=== PATIENT | male | born 1980 | race American Indian/Alaskan Native ===

== ENCOUNTER 2019-03-20 18:45 | Inpatient (IN) | payer OTHER ==
--- NOTE | 2019-03-20 18:57 | Emergency Department Report ---
Blank Doc - Documentation Documentation: 38 y o male presents with progressive numbness to right leg and bilateral hands states worsening with the right legand ankle stating he cant feel his right foot no drug use, DM, no trauma states unable to use that right leg MAin side eval
--- NOTE | 2019-03-20 22:34 | Emergency Department Report ---
ED Neuro Deficit HPI - General Chief Complaint: Pain General Stated Complaint: ENTIRE RT SIDE NUMB Time Seen by Provider: 03/20/19 18:52 Source: patient Mode of arrival: Ambulatory Limitations: No Limitations - History of Present Illness Initial Comments: 38-year-old male with a past medical history of hypertension currently compliant with meds but missed his dose today presents to Hospital complains of progressively worsening right sided numbness and weakness. Patient states 2 months ago patient woke up from sleeping with right arm numbness. Numbness is primarily at the area of the tricep. Symptoms have continued to progress to include right leg weakness and numbness that has been progressively worsening for the past 4 weeks. Today the patient was unable to move his toes of his right foot or plantar or dorsiflex his foot. He is unable to put pressure on his extremity to walk due to weakness. Patient also states he did had an episode of blurred vision that has since resolved. Patient denies any trauma, headache, neck pain, back pain, fever, or urinary or fecal incontinence. - Related Data Home Medications: Home Medications Medication Instructions Recorded Confirmed Last Taken amLODIPine [Norvasc] 5 mg PO DAILY 03/21/19 03/21/19 Unknown Allergies/Adverse Reactions: Allergies Allergy/AdvReac Type Severity Reaction Status Date / Time No Known Allergies Allergy Unverified 03/20/19 18:52 ED Review of Systems ROS: Stated complaint: ENTIRE RT SIDE NUMB Other details as noted in HPI Comment: All other systems reviewed and negative ED Past Medical Hx - Past Medical History Previous Medical History?: Yes Hx Hypertension: Yes - Surgical History Past Surgical History?: No - Social History Smoking Status: Current Every Day Smoker Substance Use Type: Alcohol, Marijuana, Prescribed - Medications Home Medications: Home Medications Medication Instructions Recorded Confirmed Last Taken Type amLODIPine [Norvasc] 5 mg PO DAILY 03/21/19 03/21/19 Unknown History ED Neuro Physical Exam - General Limitations: No Limitations Suspected Stroke: No - NIHSS Assessment Interval: Baseline 1a. Level of Consciousness: alert/keenly responsive 1b. LOC Questions: answers both correctly 1c. LOC Commands: performs tasks correctly 2. Best Gaze: normal 3. Visual: no visual loss 4. Facial Palsy: normal symmetrical movement 5b. Motor Arm Right: amputation/joint fusion 5a. Motor Arm Left: no drift 6a. Motor Leg Left: no drift 6b. Motor Leg Right: drift 7. Limb Ataxia: absent 8. Sensory: mild/moderate sensory loss 9. Best Language: no aphasia 10. Dysarthria: normal 11. Extinction/Inattention: no abnormality Total Score: 2 Stroke Severity: Minor Stroke - Other Other exam information: General: No limitations, patient is alert in no acute distress Head exam: Atraumatic, normocephalic Eyes exam: Normal appearance, pupils equal reactive to light, extraocular movements intact ENT: Moist mucous membrane, normal oropharynx Neck exam: Normal inspection, full range of motion, no meningismus nontender Respiratory exam: Clear to auscultation bilateral, no wheezes, rales, crackles Cardiovascular: Normal rate and rhythm, normal heart sounds Abdomen: Soft, nondistended, and nontender, with normal bowel sounds, no rebound, or guarding Extremity: Full range of motion normal inspection no deformity Back: Normal Inspection, full range of motion, no tenderness Neurologic: Alert, oriented x3, cranial nerves intact, decreased sensation to light touch to the right tricep area however, equal sensation to light touch to the distal bilateral arms. Decreased sensation to light touch on the right leg compared to the left. Patient has drift of the right leg with straight leg raise. Patient is unable to bend at the knee against gravity, plantar or dorsiflex the foot, or move his toes on the right side. 2+ bilateral distal DP pulses. Psychiatric: normal affect, normal mood Skin: Warm, dry, intact the ED Course Vital Signs 03/20/19 03/20/19 03/20/19 18:52 21:21 22:00 Temperature 98.9 F 98.3 F Pulse Rate 82 68 63 Respiratory 18 14 16 Rate Blood Pressure 164/95 151/99 Blood Pressure 171/109 [Left] O2 Sat by Pulse 98 100 100 Oximetry 03/20/19 03/21/19 03/21/19 23:00 01:00 01:31 Temperature Pulse Rate 59 L 58 L 58 L Respiratory 15 14 13 Rate Blood Pressure 137/93 141/93 141/93 Blood Pressure [Left] O2 Sat by Pulse 100 100 99 Oximetry 03/21/19 02:00 Temperature Pulse Rate 58 L Respiratory 16 Rate Blood Pressure 143/96 Blood Pressure [Left] O2 Sat by Pulse 99 Oximetry - Consultations Consultation #1: 03/20/19 22:39 Case D/w neurologist Dr Cuenca, agrees with management for ct and admit for MRI tomorrow. - Lab Data Result diagrams: 03/20/19 22:37 03/20/19 22:37 Lab Results 03/20/19 03/20/19 Range/Units 22:37 22:37 WBC 5.8 (4.5-11.0) K/mm3 RBC 5.40 H (3.65-5.03) M/mm3 Hgb 15.3 H (11.8-15.2) gm/dl Hct 46.0 H (35.5-45.6) % MCV 85 (84-94) fl MCH 28 (28-32) pg MCHC 33 (32-34) % RDW 15.6 H (13.2-15.2) % Plt Count 264 (140-440) K/mm3 Lymph % (Auto) 32.0 (13.4-35.0) % [place] % (Auto) 7.5 H (0.0-7.3) % Eos % (Auto) 4.1 (0.0-4.3) % Baso % (Auto) 0.9 (0.0-1.8) % Lymph # 1.9 (1.2-5.4) K/mm3 [place] # 0.4 (0.0-0.8) K/mm3 Eos # 0.2 (0.0-0.4) K/mm3 Baso # 0.1 (0.0-0.1) K/mm3 Seg Neutrophils % 55.5 (40.0-70.0) % Seg Neutrophils # 3.2 (1.8-7.7) K/mm3 Sodium 140 (137-145) mmol/L Potassium 4.0 (3.6-5.0) mmol/L Chloride 108.4 H (98-107) mmol/L Carbon Dioxide 21 L (22-30) mmol/L Anion Gap 15 mmol/L BUN 11 (9-20) mg/dL Creatinine 0.6 L (0.8-1.5) mg/dL Estimated GFR > 60 ml/min BUN/Creatinine Ratio 18 % Glucose 90 (75-100) mg/dL Calcium 8.6 (8.4-10.2) mg/dL Magnesium 2.20 (1.7-2.3) mg/dL - Radiology Data Radiology results: report reviewed PROCEDURE: CT HEAD/BRAIN WO CON TECHNIQUE: Computerized tomography of the head was performed without contrast ma terial. CT DOSE LENGTH PRODUCT: mGycm HISTORY: right upper arm numbness, right leg weakness COMPARISONS: None . FINDINGS: Skull and scalp: Normal . Paranasal sinuses: Normal . Ventricles and subarachnoid spaces: Normal . Cerebrum: No evidence of hemorrhage, acute infarction or mass . There is an old lacunar infarct defect in the right caudate nucleus. There are old infarct effects in the left frontal lobe. Cerebellum and brainstem: No evidence of hemorrhage, acute infarction or mass . Vasculature: Normal . IMPRESSION: There are old infarcts defects bilaterally. There is no acute infarction. There is no hemorrhage, edema, mass, mass effect or midline shift. . PROCEDURE: CT CERVICAL SPINE WO CON TECHNIQUE: Computerized tomography of the cervical spine was performed from the skull base to T1 without contrast material. CT DOSE LENGTH PRODUCT: mGycm HISTORY: right sided weakness and numbness COMPARISONS: None . FINDINGS: Skull base and foramen magnum are intact. Cervical vertebrae are intact. C1-2: No significant abnormality . C2-3: No significant abnormality . C3-4: No significant abnormality . C4-5: No significant abnormality . C5-6: No significant abnormality . C6-7: No significant abnormality . C7-T1: No significant abnormality . Fractures: None . Other: Soft tissues are unremarkable. . IMPRESSION: No significant abnormality . PROCEDURE: CT THORACIC SPINE WO CON HISTORY: right upper arm numbness, right leg weakness FINDINGS: Unenhanced CT of the thoracic spine was performed and data was reformatted into sagittal and coronal planes. These images demonstrate no fracture or malalignment of the thoracic spine. There is no evidence of central canal stenosis, significant neural foraminal narrowing or nerve root impingement IMPRESSION: No fracture is seen in the thoracic spine PROCEDURE: CT LUMBAR SPINE WO CON HISTORY: right upper arm numbness, right leg weakness FINDINGS: Unenhanced CT of the lumbar spine was performed and data was reformatted into sagittal and coronal planes. These images demonstrate no fracture or malalignment of the lumbar spine. There is no evidence of central canal stenosis or significant neural foraminal narrowing or nerve root impingement. There are degenerative changes in both sacroiliac joints with partial fusion of both sacroiliac joints IMPRESSION: No fracture or malalignment of the lumbar spine Bilateral partial fusion of the sacroiliac joints - Medical Decision Making Patient has significant right leg weakness progressively worsening and now more significant today. CTs performed and are fairly unremarkable. Patient requires admission to the hospital for MRI. Hospitalist informed. - Differential Diagnosis herniated disc, cauda equina, peripheral neuropathy, radiculopathy, CVA Critical Care Time: No Critical care attestation.: If time is entered above; I have spent that time in minutes in the direct care of this critically ill patient, excluding procedure time. ED Disposition Clinical Impression: Right sided numbness, Right leg weakness, Chronic hypertension Disposition: OP ADMIT IP TO THIS HOSP Is pt being admited?: Yes Condition: Stable Time of Disposition: 03:22 (Dr APPIAH hosptialist)
[2019-03-20 22:55] LABS: Basophils # (Auto) 0.1 K/mm3 (0.0-0.1); Basophils % (Auto) 0.9 % (0.0-1.8); Eosinophils # (Auto) 0.2 K/mm3 (0.0-0.4); Eosinophils % (Auto) 4.1 % (0.0-4.3); Hemoglobin 15.3 gm/dl (11.8-15.2); Lymphocytes # (Auto) 1.9 K/mm3 (1.2-5.4); Mean Corpuscular HGB Conc 33 % (32-34); Mean Corpuscular Volume 85 fl (84-94); Monocytes # (Auto) 0.4 K/mm3 (0.0-0.8); Monocytes % (Auto) 7.5 % (0.0-7.3); Platelet Count 264 K/mm3 (140-440); Red Cell Distribution Width 15.6 % (13.2-15.2)
[2019-03-20 23:10] LABS: BUN/Creatinine Ratio 18; Blood Urea Nitrogen 11 mg/dL (9-20); Calcium 8.6 mg/dL (8.4-10.2); Hemolysis Index 12
--- NOTE | 2019-03-21 01:38 | Cat Scan Report ---
PROCEDURE: CT HEAD/BRAIN WO CON TECHNIQUE: Computerized tomography of the head was performed without contrast material. CT DOSE LENGTH PRODUCT: mGycm HISTORY: right upper arm numbness, right leg weakness COMPARISONS: None . FINDINGS: Skull and scalp: Normal . Paranasal sinuses: Normal . Ventricles and subarachnoid spaces: Normal . Cerebrum: No evidence of hemorrhage, acute infarction or mass . There is an old lacunar infarct defe ct in the right caudate nucleus. There are old infarct effects in the left frontal lobe. Cerebellum and brainstem: No evidence of hemorrhage, acute infarction or mass . Vasculature: Normal . IMPRESSION: There are old infarcts defects bilaterally. There is no acute infarction. There is no he morrhage, edema, mass, mass effect or midline shift. . This document is electronically signed by Tommy Almonte MD., March 21 2019 02:35:26 AM ET
--- NOTE | 2019-03-21 02:07 | Cat Scan Report ---
PROCEDURE: CT CERVICAL SPINE WO CON TECHNIQUE: Computerized tomography of the cervical spine was performed from the skull base to T1 wit hout contrast material. CT DOSE LENGTH PRODUCT: mGycm HISTORY: right sided weakness and numbness COMPARISONS: None . FINDINGS: Skull base and foramen magnum are intact. Cervical vertebrae are intact. C1-2: No significant abnormality . C2-3: No significant abnormality . C3-4: No significant abnormality . C4-5: No significant abnormality . C5-6: No significant abnormality . C6-7: No significant abnormality . C7-T1: No significant abnormality . Fractures: None . Other: Soft tissues are unremarkable. . IMPRESSION: No significant abnormality . This document is electronically signed by Tommy Almonte MD., March 21 2019 03:05:01 AM ET
--- NOTE | 2019-03-21 02:41 | Cat Scan Report ---
PROCEDURE: CT THORACIC SPINE WO CON HISTORY: right upper arm numbness, right leg weakness FINDINGS: Unenhanced CT of the thoracic spine was performed and data was reformatted into sagittal an d coronal planes. These images demonstrate no fracture or malalignment of the thoracic spine. There is no evidence of c entral canal stenosis, significant neural foraminal narrowing or nerve root impingement IMPRESSION: No fracture is seen in the thoracic spine This document is electronically signed by Philip Patino MD., March 21 2019 03:39:06 AM ET
--- NOTE | 2019-03-21 02:49 | Cat Scan Report ---
PROCEDURE: CT LUMBAR SPINE WO CON HISTORY: right upper arm numbness, right leg weakness FINDINGS: Unenhanced CT of the lumbar spine was performed and data was reformatted into sagittal and coronal planes. These images demonstrate no fracture or malalignment of the lumbar spine. There is no evidence of cassie tral canal stenosis or significant neural foraminal narrowing or nerve root impingement. There are degenerative changes in both sacroiliac joints with partial fusion of both sacroiliac joint s IMPRESSION: No fracture or malalignment of the lumbar spine Bilateral partial fusion of the sacroiliac joints This document is electronically signed by Philip Patino MD., March 21 2019 03:47:25 AM ET
[2019-03-21] MEDS ORDERED: SODIUM CHLORIDE FLUSH SYRINGE 10 ML IV PRN (03:24)
[2019-03-21] MEDS ORDERED: ZOFRAN IV PRN (03:24)
[2019-03-21] MEDS ORDERED: TYLENOL PO PRN ×2 (03:24→04:14)
[2019-03-21] MEDS: NACL 0.9% 1000 ML 1,000 ML IV SCH (03:58)
[2019-03-21] MEDS ORDERED: PHENERGAN PR PRN (04:14)
[2019-03-21] MEDS ORDERED: MILK OF MAGNESIA PO PRN (04:14)
[2019-03-21] MEDS ORDERED: SODIUM CHLORIDE FLUSH SYRINGE 10 ML INJ PRN (04:14)
[2019-03-21] MEDS ORDERED: REGLAN PO PRN (04:14)
[2019-03-21] MEDS ORDERED: DULCOLAX PR PRN (04:14)
--- NOTE | 2019-03-21 04:30 | History and Physical Report ---
<CAMILLE COLLINS - Last Filed: 03/21/19 04:40> History of Present Illness Date of examination: 03/21/19 Date of admission: 03/21/2019 Chief complaint: Right lower extremities weakness History of present illness: Pt is a 38-year-old male with PMHx of hypertension (on Amlodipine) who presents to the ER with complains of right sided numbness and weakness. Patient states that the symptoms started 2 months ago, he woke up with right arm and right leg numbness and weakness, pt states that he was still able to drive and walk with his right side. Pt states the weakness and numbness progressively worsen over the past 4 weeks, he states that yesterday, he woke up with inability to walk or dorsiflex his right foot or to drive. Patient also reports an episode of blurred vision, he denies any weakness or numbness on his face, any slurred speach or difficulty speaking, he denies double vision, recent illness or traveling, he denies headache or dizziness, he denies any change and bowel or bladder. In the ER his CT of the head, cervical or lumbar spine were negative, he is admitted for further evaluation. Past History Past Medical History: hypertension Past Surgical History: No surgical history Social history: no significant social history, smoking (quit 6 weeks ago) Family history: no significant family history Medications and Allergies Allergies Allergy/AdvReac Type Severity Reaction Status Date / Time No Known Allergies Allergy Unverified 03/20/19 18:52 Home Medications Medication Instructions Recorded Confirmed Last Taken Type amLODIPine [Norvasc] 5 mg PO DAILY 03/21/19 03/21/19 Unknown History Active Meds: Active Medications Acetaminophen (Tylenol) 650 mg PO Q4H PRN PRN Reason: Pain MILD(1-3)/Fever >100.5/ARROYO Acetaminophen (Tylenol) 650 mg PO Q4H PRN PRN Reason: Pain, Mild (1-3) Atorvastatin Calcium (Lipitor) 40 mg PO QHS [facility] Bisacodyl (Dulcolax) 10 mg MN QDAY PRN PRN Reason: Constipation Enoxaparin Sodium (Lovenox) 40 mg SUB-Q QDAY [facility] Famotidine (Pepcid) 20 mg IV BID [facility] Sodium Chloride (Nacl 0.9% 1000 Ml) 1,000 mls @ 100 mls/hr IV DIRECT [facility] Last Admin: 03/21/19 03:58 Dose: 100 mls/hr Documented by: Magnesium Hydroxide (Milk Of Magnesia) 30 ml PO Q4H PRN PRN Reason: Constipation Metoclopramide HCl (Reglan) 10 mg PO Q6H PRN PRN Reason: Nausea And Vomiting Ondansetron HCl (Zofran) 4 mg IV Q8H PRN PRN Reason: Nausea And Vomiting Promethazine HCl (Phenergan) 25 mg MN Q6H PRN PRN Reason: Nausea And Vomiting Sodium Chloride (Sodium Chloride Flush Syringe 10 Ml) 10 ml IV BID MARILIN Sodium Chloride (Sodium Chloride Flush Syringe 10 Ml) 10 ml IV PRN PRN PRN Reason: LINE FLUSH Sodium Chloride (Sodium Chloride Flush Syringe 10 Ml) 10 ml INJ PRN PRN PRN Reason: LINE FLUSH Review of Systems Neurological: weakness, numbness Exam - Constitutional Vitals: Temp Pulse Resp BP Pulse Ox 98.3 F 69 11 L 151/96 99 03/20/19 21:21 03/21/19 03:30 03/21/19 03:30 03/21/19 03:30 03/21/19 03:30 General appearance: Present: no acute distress - EENT Eyes: Present: EOM intact ENT: hearing intact - Neck Neck: Present: normal ROM - Respiratory Respiratory effort: normal Respiratory: bilateral: CTA - Cardiovascular Rhythm: regular Heart Sounds: Present: S1 & S2 - Extremities Extremities: no ischemia, No edema Peripheral Pulses: within normal limits - Abdominal General gastrointestinal: Present: deferred Male genitourinary: Present: deferred - Rectal Rectal Exam: deferred - Integumentary Integumentary: Present: warm, dry - Musculoskeletal Musculoskeletal: right sided weakness - Psychiatric Psychiatric: cooperative - Neurologic Neurologic: focal deficits Results - Labs CBC & Chem 7: 03/20/19 22:37 03/20/19 22:37 Labs: Laboratory Last Values WBC 5.8 K/mm3 (4.5-11.0) 03/20/19 22:37 RBC 5.40 M/mm3 (3.65-5.03) H 03/20/19 22:37 Hgb 15.3 gm/dl (11.8-15.2) H 03/20/19 22:37 Hct 46.0 % (35.5-45.6) H 03/20/19 22:37 MCV 85 fl (84-94) 03/20/19 22:37 MCH 28 pg (28-32) 03/20/19 22:37 MCHC 33 % (32-34) 03/20/19 22:37 RDW 15.6 % (13.2-15.2) H 03/20/19 22:37 Plt Count 264 K/mm3 (140-440) 03/20/19 22:37 Lymph % (Auto) 32.0 % (13.4-35.0) 03/20/19 22:37 [place] % (Auto) 7.5 % (0.0-7.3) H 03/20/19 22:37 Eos % (Auto) 4.1 % (0.0-4.3) 03/20/19 22:37 Baso % (Auto) 0.9 % (0.0-1.8) 03/20/19 22:37 Lymph # 1.9 K/mm3 (1.2-5.4) 03/20/19 22:37 [place] # 0.4 K/mm3 (0.0-0.8) 03/20/19 22:37 Eos # 0.2 K/mm3 (0.0-0.4) 03/20/19 22:37 Baso # 0.1 K/mm3 (0.0-0.1) 03/20/19 22:37 Seg Neutrophils % 55.5 % (40.0-70.0) 03/20/19 22:37 Seg Neutrophils # 3.2 K/mm3 (1.8-7.7) 03/20/19 22:37 Sodium 140 mmol/L (137-145) 03/20/19 22:37 Potassium 4.0 mmol/L (3.6-5.0) 03/20/19 22:37 Chloride 108.4 mmol/L (98-107) H 03/20/19 22:37 Carbon Dioxide 21 mmol/L (22-30) L 03/20/19 22:37 15 mmol/L 03/20/19 22:37 BUN 11 mg/dL (9-20) 03/20/19 22:37 0.6 mg/dL (0.8-1.5) L 03/20/19 22:37 Estimated GFR > 60 ml/min 03/20/19 22:37 18 % 03/20/19 22:37 Glucose 90 mg/dL (75-100) 03/20/19 22:37 Calcium 8.6 mg/dL (8.4-10.2) 03/20/19 22:37 Magnesium 2.20 mg/dL (1.7-2.3) 03/20/19 22:37 Assessment and Plan Assessment and plan: 1. Right-sided weakness (r/o CVA) 2. Accelerated hypertension 3. H/o cigarette smoking 4. H/o alcohol use disorder Plan: Admit to med telemetry for right-sided weakness to rule out CVA Consult neurology for evaluation MRI of the brain to f/u CT Echocardiogram MRA of the head and neck Physical therapy/occupational therapy to evaluate and treat Consult case management for DC planning Lipid panel/hemoglobin A1c in AM Starts statin, aspirin, beta angel Keep SBP >150 Resume home meds Plan discussed with patient and family in room, voiced understanding Advance Directives: Yes VTE prophylaxis?: Chemical Plan of care discussed with patient/family: Yes <CALLY APPIAH - Last Filed: 03/21/19 06:38> History of Present Illness Date of admission: 03/21/19 03:24 Medications and Allergies Active Meds: Active Medications Acetaminophen (Tylenol) 650 mg PO Q4H PRN PRN Reason: Pain, Mild (1-3) Amlodipine Besylate (Norvasc) 5 mg PO DAILY [facility] Aspirin (Aspirin) 325 mg PO QDAY [facility] Atorvastatin Calcium (Lipitor) 40 mg PO QHS [facility] Bisacodyl (Dulcolax) 10 mg MN QDAY PRN PRN Reason: Constipation Enoxaparin Sodium (Lovenox) 40 mg SUB-Q QDAY [facility] Famotidine (Pepcid) 20 mg IV BID [facility] Sodium Chloride (Nacl 0.9% 1000 Ml) 1,000 mls @ 100 mls/hr IV DIRECT [facility] Last Admin: 03/21/19 03:58 Dose: 100 mls/hr Documented by: Magnesium Hydroxide (Milk Of Magnesia) 30 ml PO Q4H PRN PRN Reason: Constipation Metoclopramide HCl (Reglan) 10 mg PO Q6H PRN PRN Reason: Nausea And Vomiting Metoprolol Tartrate (Lopressor) 25 mg PO BID [facility] Ondansetron HCl (Zofran) 4 mg IV Q8H PRN PRN Reason: Nausea And Vomiting Promethazine HCl (Phenergan) 25 mg MN Q6H PRN PRN Reason: Nausea And Vomiting Sodium Chloride (Sodium Chloride Flush Syringe 10 Ml) 10 ml IV BID [facility] Sodium Chloride (Sodium Chloride Flush Syringe 10 Ml) 10 ml IV PRN PRN PRN Reason: LINE FLUSH Exam - Constitutional Vitals: Temp Pulse Resp BP Pulse Ox 98.5 F 58 L 18 137/94 98 03/21/19 05:17 03/21/19 05:17 03/21/19 05:17 03/21/19 05:17 03/21/19 05:17 Results - Labs CBC & Chem 7: 03/20/19 22:37 03/20/19 22:37 Labs: Laboratory Last Values WBC 5.8 K/mm3 (4.5-11.0) 03/20/19 22:37 RBC 5.40 M/mm3 (3.65-5.03) H 03/20/19 22:37 Hgb 15.3 gm/dl (11.8-15.2) H 03/20/19 22:37 Hct 46.0 % (35.5-45.6) H 03/20/19 22:37 MCV 85 fl (84-94) 03/20/19 22:37 MCH 28 pg (28-32) 03/20/19 22:37 MCHC 33 % (32-34) 03/20/19 22:37 RDW 15.6 % (13.2-15.2) H 03/20/19 22:37 Plt Count 264 K/mm3 (140-440) 03/20/19 22:37 Lymph % (Auto) 32.0 % (13.4-35.0) 03/20/19 22:37 [place] % (Auto) 7.5 % (0.0-7.3) H 03/20/19 22:37 Eos % (Auto) 4.1 % (0.0-4.3) 03/20/19 22:37 Baso % (Auto) 0.9 % (0.0-1.8) 03/20/19 22:37 Lymph # 1.9 K/mm3 (1.2-5.4) 03/20/19 22:37 [place] # 0.4 K/mm3 (0.0-0.8) 03/20/19 22:37 Eos # 0.2 K/mm3 (0.0-0.4) 03/20/19 22:37 Baso # 0.1 K/mm3 (0.0-0.1) 03/20/19 22:37 Seg Neutrophils % 55.5 % (40.0-70.0) 03/20/19 22:37 Seg Neutrophils # 3.2 K/mm3 (1.8-7.7) 03/20/19 22:37 Sodium 140 mmol/L (137-145) 03/20/19 22:37 Potassium 4.0 mmol/L (3.6-5.0) 03/20/19 22:37 Chloride 108.4 mmol/L (98-107) H 03/20/19 22:37 Carbon Dioxide 21 mmol/L (22-30) L 03/20/19 22:37 15 mmol/L 03/20/19 22:37 BUN 11 mg/dL (9-20) 03/20/19 22:37 0.6 mg/dL (0.8-1.5) L 03/20/19 22:37 Estimated GFR > 60 ml/min 03/20/19 22:37 18 % 03/20/19 22:37 Glucose 90 mg/dL (75-100) 03/20/19 22:37 Calcium 8.6 mg/dL (8.4-10.2) 03/20/19 22:37 Magnesium 2.20 mg/dL (1.7-2.3) 03/20/19 22:37 Assessment and Plan Assessment and plan: I saw and evaluated the patient. I agree with the findings and the plan of care as documented in the Nurse Practitioner's~note, with the following corrections and additions. Patient 38-year-old male with PMHx of hypertension admitted with right sided numbness and weakness. Per patient he has had right upper Ext weakness for about 2 months along with right lower ext from the knee down weakness but last night began to have worsening right lower ext weakness and numbness from the Ankle down He denies any Hx of MVA, LOW BACK PAIN, [place]. He quit tobacco about 6 weeks ago and is sometimes complaint with his BP meds Add- carotid ultrasound to work up
--- NOTE | 2019-03-21 09:51 | Event Note ---
Date: 03/21/19 This is a follow-up from an admission earlier this morning. Patient seen, examined and chart reviewed. Nurse also at the bedside and discussed plan of care. We will continue the plan as outlined in H&P. Total visit time= 26 minutes with greater than 50% spent on counseling and coordination of care.
--- NOTE | 2019-03-21 10:05 | Vascular Lab Report ---
PROCEDURE: VL CAROTID DUPLEX BILAT TECHNIQUE: Duplex Doppler ultrasound of bilateral carotid arteries. Grayscale, color flow and spectr al waveform images were obtained. HISTORY: RIGHT SIDED WEAKNESS COMPARISON: None FINDINGS: There is a mild to moderate degree of atherosclerotic plaque within proximal ICAs bilaterally. ICAs a re tortuous. There is no abnormal elevation of flow velocity to indicate any hemodynamically significant stenosis (less than 50%). ICA/CCA ratios are 0.67 and 0.59 on right and left respectively. Vertebral artery flow is antegrade bilaterally. IMPRESSION: No evidence of any hemodynamically significant stenosis. This document is electronically signed by Azra Martins MD., March 21 2019 11:02:33 AM ET
[2019-03-21] MEDS: PEPCID IV SCH ×2 (11:30→21:40)
[2019-03-21] MEDS: LOVENOX SUB-Q SCH (11:30)
[2019-03-21] MEDS: NORVASC PO SCH (11:31)
[2019-03-21] MEDS: ASPIRIN PO SCH (11:31)
[2019-03-21] MEDS: LOPRESSOR PO SCH ×2 (11:32→21:39)
[2019-03-21] MEDS: SODIUM CHLORIDE FLUSH SYRINGE 10 ML IV SCH ×2 (11:33→21:41)
--- NOTE | 2019-03-21 12:16 | Magnetic Resonance Report ---
MRI OF THE BRAIN WITHOUT CONTRAST: HISTORY: Stroke PROCEDURE: Multiplanar, multisequence MR imaging of the brain without IV contrast was performed. FINDINGS: The CT dated 04/06 was reviewed. Diffusion imaging demonstrates multiple areas of diffusion restriction in the left frontal lobe. The largest area in the anterior left frontal lobe measures 3.3 x 2.1 cm in axial plane. The second largest area measures 2.3 x 1.4 cm in the posteromedial left frontal lobe. There are 2 or 3 subcentimeter foci of diffusion restriction in the left frontal white matter anteriorly. These areas are of decreased signal on ADC map consistent subacute ischemia. There is no evidence for hemorrhage, mass or mass effect. Chronic focal infarct in the right anterior basal ganglia measures 1.2 cm. The midline structures are central. The basal cisterns are patent. Normal ventricular size. The orbital cavities and sella turcica demonstrate no abnormality. The visualized paranasal sinuses and mastoid air cells are well aerated. IMPRESSION: Multiple areas of subacute ischemia are identified in the left frontal lobe which are primarily within the left anterior cerebral artery territory or anterior watershed region. Please see above. Chronic focal infarct in the anterior right basal ganglia.
--- NOTE | 2019-03-21 12:18 | Magnetic Resonance Report ---
MRA HEAD WITHOUT CONTRAST HISTORY: Stroke. [id number] imaging with MIP reformations of the [place] of [place] is submitted. The arteries appear widely patent and free of hemodynamically significant stenosis, aneurysm or dissection. IMPRESSION: Unremarkable MRA head. No large vessel occlusion or aneurysm is identified.
--- NOTE | 2019-03-21 17:47 | Consultation ---
History of Present Illness Chief complaint: right weakness History of present illness: This is a 38 YO M with right sided weakness progressing over 2 months. Also with paresthesias. In the days leading up to admission was unable to walk. Also had a visual field cut but this has resolved. Denied autoimmune diseases int he family. No new meds , recently diagnosed with hypertension. Past History Past Medical History: hypertension Past Surgical History: No surgical history Social history: no significant social history, smoking (quit 6 weeks ago) Family history: no significant family history Medications and Allergies Allergies Allergy/AdvReac Type Severity Reaction Status Date / Time No Known Allergies Allergy Unverified 03/20/19 18:52 Home Medications Medication Instructions Recorded Confirmed Last Taken Type amLODIPine [Norvasc] 5 mg PO DAILY 03/21/19 03/21/19 Unknown History Active Meds: Active Medications Acetaminophen (Tylenol) 650 mg PO Q4H PRN PRN Reason: Pain, Mild (1-3) Amlodipine Besylate (Norvasc) 5 mg PO DAILY [facility] Last Admin: 03/21/19 11:31 Dose: 5 mg Documented by: Aspirin (Aspirin) 325 mg PO QDAY [facility] Last Admin: 03/21/19 11:31 Dose: 325 mg Documented by: Atorvastatin Calcium (Lipitor) 40 mg PO QHS MARILIN Bisacodyl (Dulcolax) 10 mg NV QDAY PRN PRN Reason: Constipation Enoxaparin Sodium (Lovenox) 40 mg SUB-Q QDAY [facility] Last Admin: 03/21/19 11:30 Dose: 40 mg Documented by: Famotidine (Pepcid) 20 mg IV BID [facility] Last Admin: 03/21/19 11:30 Dose: 20 mg Documented by: Sodium Chloride (Nacl 0.9% 1000 Ml) 1,000 mls @ 100 mls/hr IV DIRECT [facility] Last Admin: 03/21/19 03:58 Dose: 100 mls/hr Documented by: Magnesium Hydroxide (Milk Of Magnesia) 30 ml PO Q4H PRN PRN Reason: Constipation Metoclopramide HCl (Reglan) 10 mg PO Q6H PRN PRN Reason: Nausea And Vomiting Metoprolol Tartrate (Lopressor) 25 mg PO BID [facility] Last Admin: 03/21/19 11:32 Dose: 25 mg Documented by: Ondansetron HCl (Zofran) 4 mg IV Q8H PRN PRN Reason: Nausea And Vomiting Promethazine HCl (Phenergan) 25 mg NV Q6H PRN PRN Reason: Nausea And Vomiting Sodium Chloride (Sodium Chloride Flush Syringe 10 Ml) 10 ml IV BID MARILIN Last Admin: 03/21/19 11:33 Dose: 10 ml Documented by: Sodium Chloride (Sodium Chloride Flush Syringe 10 Ml) 10 ml IV PRN PRN PRN Reason: LINE FLUSH Review of Systems Eyes: bilateral: other (field cut) Musculoskeletal: leg numbness/tingling, muscle weakness Physical Examination - Vital Signs Vital Signs: Vital Signs Temp Pulse Resp BP Pulse Ox 98.9 F 82 18 164/95 98 03/20/19 18:52 03/20/19 18:52 03/20/19 18:52 03/20/19 18:52 03/20/19 18:52 - Constitutional General appearance: comfortable - EENT EENT: Present: PERRL, mucous membranes moist - Respiratory Respiratory: Present: lungs clear, normal breath sounds - Gastrointestinal Gastrointestinal: Present: normoactive bowel sounds - Neurologic Cranial nerve examination: PERRL, EOMI, VFF, V1/V2/V3 grossly intact, face symmetric Motor examination - right side: 4/5: biceps, triceps, wrist flexion, wrist extension, welder experimental, hip flexors, knee extensors, dorsiflexion, toe extension (EHL), plantarflexion Motor examination - left side: 2/5: knee extensors, dorsiflexion, toe extension (EHL), plantarflexion, 3/5: biceps, triceps, wrist flexion, wrist extension, welder experimental, hip flexors Detailed sensory examination: light touch Reflexes: 3+: ankle, bicep, knee, tricep (bilateral, no clonus noted) Results - Laboratory Findings CBC and BMP: 03/20/19 22:37 03/20/19 22:37 Abnormal Lab Findings: Abnormal Labs 03/20/19 03/20/19 22:37 22:37 RBC 5.40 H Hgb 15.3 H Hct 46.0 H RDW 15.6 H [place] % (Auto) 7.5 H Chloride 108.4 H Carbon Dioxide 21 L Creatinine 0.6 L - Diagnostic Findings Additional findings: MRI Brain left frontal changes, MRA clean Assessment and Plan This is a 38 YO M with progressive right sided weakness and paresthesias for 2 months. Hyperreflexia bilaterally. History fits more with demyelinating di sease. Also with intermittant vision changes. Recommend: MRI Brain w, MRI c spine w/wo Hypercoag w/u but stroke is less likely KAY, DS DNA Presented LP for MS panel, pt would like to hold off for now If MRI IS c/w demyelination would give high dose steroids Solumedrol 1000 mg daily x 3-5 days PT/OT Continue care for all medical issues as you are doing Long discussion with pt and at bedside Call with questions.
[2019-03-22] MEDS: NACL 0.9% 1000 ML 1,000 ML IV SCH (03:48)
[2019-03-22 06:55] LABS: Chol/HDL Ratio 4.28 %
[2019-03-22] MEDS: LOPRESSOR PO SCH ×2 (09:15→22:08)
[2019-03-22] MEDS: PEPCID IV SCH (09:15)
[2019-03-22] MEDS: LOVENOX SUB-Q SCH (09:15)
[2019-03-22] MEDS: ASPIRIN PO SCH (09:15)
[2019-03-22] MEDS: NORVASC PO SCH (09:16)
[2019-03-22] MEDS: SODIUM CHLORIDE FLUSH SYRINGE 10 ML IV SCH ×2 (09:17→22:09)
--- NOTE | 2019-03-22 13:41 | Magnetic Resonance Report ---
MRI BRAIN WITH CONTRAST: 03/22/19 10:25:00 CLINICAL: Subacute infarcts. Questionable demyelinating disease. COMPARISON: 03/21/19 TECHNIQUE: Coronal and axial postcontrast T1 sequences on a 1.5 Joann magnet. 18.0 cc of Multihance was injected intravenously and consent was obtained prior to the administration of the contrast. FINDINGS: Mild cortical enhancement involving the left frontal lobe. The enhancement correlates with a small portion of the areas of restricted diffusion on the noncontrast MRI brain. No other abnormal enhancement. No mass or mass effect. No hemorrhage, edema or extra-axial collection. The brainstem and cerebellum are normal. The orbits, sinuses and soft tissues are normal. Normal calvarium and skull base. IMPRESSION: Mild left frontal lobe cortical enhancement consistent with a late subacute infarct. The degree of enhancement is relatively small compared to other areas of restricted diffusion which represent more recent ischemia. No evidence of demyelinating disease.
--- NOTE | 2019-03-22 13:53 | Magnetic Resonance Report ---
MR CERVICAL SPINE WITH AND WITHOUT CONTRAST HISTORY: Demyelinating disease. TECHNIQUE: Axial T2 and T2 gradient. Sagittal T1, T2 and STIR. Post contrast T1 fat-sat images and axial and sagittal planes. COMPARISON: None. FINDINGS: The cervical spinal cord is normal size and signal intensity throughout. No abnormal intramedullary signal is detected. Normal height and alignment of the cervical vertebral bodies. Normal bone marrow signal. There is mild disc desiccation throughout the cervical region. No advanced degenerative disc disease. The facet joints are in appropriate relationship. No significant joint pathology or hypertrophic changes. The paraspinal soft tissues are within normal limits. C2-3: Within normal limits. C3-4: Within normal limits. C4-5: Within normal limits. C5-6: Within normal limits. C6-7: Within normal limits. C7-T1: Within normal limits. No abnormal enhancement following IV gadolinium is identified. IMPRESSION: Unremarkable MR cervical spine with and without contrast.
--- NOTE | 2019-03-22 17:38 | Progress Note ---
Assessment and Plan Assessment and plan: Assessment: Right-sided weakness Accelerated hypertension H/o cigarette smoking H/o alcohol use disorder Plan: Admitted to [facility] telemetry for right-sided weakness to rule out CVA Neurology following MRI of the brain done Echocardiogram MRA of the head and neck Physical therapy/occupational therapy to evaluate and treat Consulted case management for DC planning Lipid panel/hemoglobin A1c in AM Continue statin, aspirin, beta angel Keep SBP >150 Plan discussed with patient and girlfriend n room History Interval history: Right sided weakness Hospitalist Physical - Physical exam Narrative exam: Gen: Not in acute distress, lying in bed, HEENT: Normocephalic, atraumatic Neck: supple, no JVD Heart: S1 and S2 reg, no murmurs, rubs or gallop Lungs: Clear, no crackles, no wheeze Abd: soft, non tender, non distended, normal BS Ext: No edema, no clubbing, no cyanosis, Neuro: Awake,alert, oriented x 3, right sided weakness leg>arm Psych:Normal mood - Constitutional Vitals: Temp Pulse Resp BP Pulse Ox 98.3 F 58 L 18 138/92 98 03/22/19 16:22 03/22/19 16:35 03/22/19 16:22 03/22/19 16:22 03/22/19 16:22 General appearance: Present: no acute distress Results - Labs CBC & Chem 7: 03/20/19 22:37 03/20/19 22:37 Labs: Laboratory Last Values WBC 5.8 K/mm3 (4.5-11.0) 03/20/19 22:37 RBC 5.40 M/mm3 (3.65-5.03) H 03/20/19 22:37 Hgb 15.3 gm/dl (11.8-15.2) H 03/20/19 22:37 Hct 46.0 % (35.5-45.6) H 03/20/19 22:37 MCV 85 fl (84-94) 03/20/19 22:37 MCH 28 pg (28-32) 03/20/19 22:37 MCHC 33 % (32-34) 03/20/19 22:37 RDW 15.6 % (13.2-15.2) H 03/20/19 22:37 Plt Count 264 K/mm3 (140-440) 03/20/19 22:37 Lymph % (Auto) 32.0 % (13.4-35.0) 03/20/19 22:37 [place] % (Auto) 7.5 % (0.0-7.3) H 03/20/19 22:37 Eos % (Auto) 4.1 % (0.0-4.3) 03/20/19 22:37 Baso % (Auto) 0.9 % (0.0-1.8) 03/20/19 22:37 Lymph # 1.9 K/mm3 (1.2-5.4) 03/20/19 22:37 [place] # 0.4 K/mm3 (0.0-0.8) 03/20/19 22:37 Eos # 0.2 K/mm3 (0.0-0.4) 03/20/19 22:37 Baso # 0.1 K/mm3 (0.0-0.1) 03/20/19 22:37 Seg Neutrophils % 55.5 % (40.0-70.0) 03/20/19 22:37 Seg Neutrophils # 3.2 K/mm3 (1.8-7.7) 03/20/19 22:37 Sodium 140 mmol/L (137-145) 03/20/19 22:37 Potassium 4.0 mmol/L (3.6-5.0) 03/20/19 22:37 Chloride 108.4 mmol/L (98-107) H 03/20/19 22:37 Carbon Dioxide 21 mmol/L (22-30) L 03/20/19 22:37 15 mmol/L 03/20/19 22:37 BUN 11 mg/dL (9-20) 03/20/19 22:37 0.6 mg/dL (0.8-1.5) L 03/20/19 22:37 Estimated GFR > 60 ml/min 03/20/19 22:37 18 % 03/20/19 22:37 Glucose 90 mg/dL (75-100) 03/20/19 22:37 5.0 % (4-6) 03/22/19 05:36 Calcium 8.6 mg/dL (8.4-10.2) 03/20/19 22:37 Magnesium 2.20 mg/dL (1.7-2.3) 03/20/19 22:37 Triglycerides 89 mg/dL (2-149) 03/22/19 05:36 Cholesterol 167 mg/dL (50-199) 03/22/19 05:36 119 mg/dL (50-130) 03/22/19 05:36 39 mg/dL (40-59) L 03/22/19 05:36 4.28 % 03/22/19 05:36 Active Medications - Current Medications Current Medications: Generic Name Dose Route Start Last Admin Trade Name Freq PRN Reason Stop Dose Admin Acetaminophen 650 mg 03/21/19 04:14 Tylenol PO Q4H PRN Pain, Mild (1-3) Amlodipine Besylate 5 mg 03/21/19 10:00 03/22/19 09:16 Norvasc PO Not Given DAILY MARILIN Aspirin 325 mg 03/21/19 10:00 03/22/19 09:15 Aspirin PO 325 mg QDAY MARILIN Administration Atorvastatin Calcium 40 mg 03/21/19 22:00 03/21/19 21:39 Lipitor PO 40 mg QHS MARILIN Administration Bisacodyl 10 mg 03/21/19 04:14 Dulcolax MO QDAY PRN Constipation Enoxaparin Sodium 40 mg 03/21/19 10:00 03/22/19 09:15 Lovenox SUB-Q 40 mg QDAY MARILIN Administration Famotidine 20 mg 03/22/19 22:00 Pepcid PO BID [facility] Sodium Chloride 1,000 mls @ 100 mls/hr 03/21/19 04:00 03/22/19 03:48 Nacl 0.9% 1000 Ml IV 100 mls/hr DIRECT MARILIN Administration Magnesium Hydroxide 30 ml 03/21/19 04:14 Milk Of Magnesia PO Q4H PRN Constipation Metoclopramide HCl 10 mg 03/21/19 04:14 Reglan PO Q6H PRN Nausea And Vomiting Metoprolol Tartrate 25 mg 03/21/19 10:00 03/22/19 09:15 Lopressor PO Not Given BID MARILIN Ondansetron HCl 4 mg 03/21/19 03:24 Zofran IV Q8H PRN Nausea And Vomiting Promethazine HCl 25 mg 03/21/19 04:14 Phenergan MO Q6H PRN Nausea And Vomiting Sodium Chloride 10 ml 03/21/19 10:00 03/22/19 09:17 Sodium Chloride Flush Syringe 10 Ml IV 10 ml BID MARILIN Administration Sodium Chloride 10 ml 03/21/19 03:24 Sodium Chloride Flush Syringe 10 Ml IV PRN PRN LINE FLUSH Nutrition/Malnutrition Assess - Dietary Evaluation Nutrition/Malnutrition Findings: Nutrition Notes Start: 03/21/19 12:12 Freq: Status: Active Protocol: Document 03/21/19 12:12 LP (Rec: 03/21/19 12:21 LP [id number]) Nutrition Notes Need for Assessment generated from: MD Order,Education Initial or Follow up Brief Note Current Diagnosis Hypertension Subjective/Other Information Consult for diet education. Pt states being diagnosed with HTN 4 weeks ago but just got medication a few days ago. Pt states changing diet to chicken and vegetales. Admits diet was pizza, beer and cigarettes. Pt states no longer doing any of these anymore. #1 Nutrition Diagnosis Food and nutrition-related knowledge deficit Etiology Low Na diet As Evidenced by Signs and Symptoms Pt wanted diet education on low Na diet Nutrition Intervention Teaching Recipient Patient Learning Readiness Good Teaching Methods Discussion Response to Teaching Verbalize understanding Education Handouts Provided HTN diet Barriers to Learning No Barriers RD phone number provided Yes Patient aware of follow up options Yes Revisit per MD consult or patient Sign Off request:
--- NOTE | 2019-03-22 17:43 | Progress Note ---
Assessment and Plan This is a 38 YO M with progressive right sided weakness and paresthesias for 2 months. Additional MRI's with no evidence of demyelination. Recommend: MRI Brain w, MRI c spine w/wo- reviewed Hypercoag w/u pending KAY, DS DNA- pending PT/OT Continue care for all medical issues as you are doing Long discussion with pt and at bedside Call with questions. Will need close neuro follow up outpatient. Subjective Date of service: 03/22/19 Interval history: No new complaints. Still weak on the right. Objective - Vital Sign Vital Signs - 12hr 03/22/19 03/22/19 03/22/19 07:55 09:13 09:15 Temperature 98.2 F Pulse Rate 65 65 Pulse Rate [ From Monitor] Respiratory 18 Rate Blood Pressure 152/89 152/89 O2 Sat by Pulse 98 97 Oximetry 03/22/19 03/22/19 03/22/19 09:16 10:00 16:22 Temperature 98.3 F Pulse Rate 65 62 67 Pulse Rate [ 65 From Monitor] Respiratory 18 18 Rate Blood Pressure 152/89 138/92 O2 Sat by Pulse 98 98 Oximetry 03/22/19 16:35 Temperature Pulse Rate 58 L Pulse Rate [ From Monitor] Respiratory Rate Blood Pressure O2 Sat by Pulse Oximetry - General Apperance Constitutional: comfortable - EENT EENT: PERRL, hearing intact, vision intact - Respiratory Respiratory: lungs clear - Cardiovascular Cardiovascular: regular rate Extremities: no peripheral edema bilat - Gastrointestinal Gastrointestinal: normoactive bowel sounds - Neurologic Cranial nerve examination: PERRL, EOMI, VFF, V1/V2/V3 grossly intact, face symmetric Speech examination: intact Motor examination - right side: 3/5: biceps, triceps, wrist flexion, wrist extension, hospital intern, hip flexors, knee extensors, dorsiflexion, toe extension (EHL), plantarflexion Motor examination - left side: 5/5: biceps, triceps, wrist flexion, wrist extension, hospital intern, hip flexors, knee extensors, dorsiflexion, toe extension (EHL), plantarflexion Reflexes: 1+: ankle, bicep, knee, tricep - Psychiatric Psychiatric: mood/affect appropriate - Laboratory Findings CBC and BMP: 03/20/19 22:37 03/20/19 22:37 Abnormal Lab Findings: Abnormal Labs 03/20/19 03/20/19 03/22/19 22:37 22:37 05:36 RBC 5.40 H Hgb 15.3 H Hct 46.0 H RDW 15.6 H [place] % (Auto) 7.5 H Chloride 108.4 H Carbon Dioxide 21 L Creatinine 0.6 L HDL Cholesterol 39 L - Diagnostic Findings Additional findings: MRI Brain, only showed known stroke, c spine no abnormalities
[2019-03-22] MEDS: PEPCID PO SCH (22:08)
[2019-03-23] MEDS: SODIUM CHLORIDE FLUSH SYRINGE 10 ML IV SCH ×2 (09:31→21:22)
[2019-03-23] MEDS: LOPRESSOR PO SCH ×2 (09:33→21:21)
[2019-03-23] MEDS: ASPIRIN PO SCH (09:54)
[2019-03-23] MEDS: NORVASC PO SCH (09:54)
[2019-03-23] MEDS: PEPCID PO SCH ×2 (09:54→21:22)
[2019-03-23] MEDS: LOVENOX SUB-Q SCH (09:55)
--- NOTE | 2019-03-23 15:21 | Discharge Summary ---
Providers - Providers Date of Admission: 03/21/19 03:24 Date of discharge: 03/23/19 Attending physician: FRIDA DOMINGUEZ 03/21/19 Consult to Physician [CONS] Routine Comment: Consulting Provider: JUSTIN BROWN Physician Instructions: Reason For Exam: right sided weakness 03/21/19 04:14 Consult to Case Management [CONS] Routine Services Needed at Discharge: Physical Therapy Notified:: STORY WRITER Consult to Dietitian/Nutrition [CONS] Routine Physician Instructions: Reason For Exam: Reason for Consult: Nutrition Recommendations Reason for Consult: Diet education Occupational Therapy Evaluate and Treat [CONS] Routine Comment: Reason For Exam: Neuro deficits Physical Therapy Evaluation and Treat [CONS] Routine Comment: Reason For Exam: Neuro deficits 03/22/19 08:49 Speech Therapy Evaluation and Treat [CONS] Routine Reason For Exam: stroke [facility] Condition[facility] Hospital course: Patient is 38-year-old male with hypertension who presented to the ER with complaints of right sided numbness and weakness. Patient states that the symptoms started 2 months ago. Patient stated the weakness and numbness progressively worsened over the past 4 weeks, and day prior to admission, he woke woke up with inability to walk or dorsiflex his right foot or to drive. Patient also reported an episode of blurred vision. CT head was unremarkable. He was given aspirin and admitted to rule out possible stroke. MRI brain confirmed subacute ischemia in the left frontal lobe. He was seen by neurologist, physical therapy, occupational therapy and speech therapist. he improvedslightly with Physical therapy in a few days and was subsequently discharged home on 03/24/19. He complained of leg swelling and DVT was ruled out. Total time spent on discharge, 32 mins Disposition: DC-01 TO HOME OR SELFCARE - Discharge Diagnoses (1) HTN (hypertension) Status: Acute (2) Acute ischemic stroke Status: Acute (3) HTN (hypertension) Status: Acute (4) Hyperlipidemia Status: Acute Core Measure Documentation - Palliative Care Palliative Care/ Comfort Measures: Not Applicable - Core Measures Any of the following diagnoses?: stroke - Stroke Discharge Requirements Statin for LDL = or >70 mg/dl on DC: Yes Anticoag for atrial fib/atrial flutter: Not Applicable Antithrombotic for ischemic stroke: Yes Exam - Constitutional Vitals: Temp Pulse Resp BP Pulse Ox 98.2 F 60 18 118/77 97 03/23/19 11:37 03/23/19 11:37 03/23/19 11:37 03/23/19 11:37 03/23/19 11:37 Plan Activity: advance as tolerated Diet: low fat, low cholesterol, low salt Durable Medical Equipment Needed Upon Discharge: Walker-Rolling Additional Instructions: 1.Follow up with PCP or [facility] in 1 week. 2.Rolling walker. 3.Outpatient Physical Therapy. Follow up with: DEXTER DIOP MD [Primary Care Provider] - 7 Days Prescriptions: Aspirin 325 mg PO QDAY #30 tablet AtorvaSTATin [Lipitor] 40 mg PO QHS #30 tab amLODIPine [Norvasc] 10 mg PO DAILY #30 tab Other Discharge Orders: Physicial Therapy (Amb) Location: None Selected
[2019-03-24] MEDS: NORVASC PO SCH (09:21)
[2019-03-24] MEDS: ASPIRIN PO SCH (09:21)
[2019-03-24] MEDS: PEPCID PO SCH (09:21)
[2019-03-24] MEDS: LOVENOX SUB-Q SCH (09:23)
[2019-03-24] MEDS: LOPRESSOR PO SCH (09:30)
[2019-03-24] MEDS: SODIUM CHLORIDE FLUSH SYRINGE 10 ML IV SCH (09:32)
--- NOTE | 2019-03-24 11:20 | Progress Note ---
Assessment and Plan Assessment and plan: Assessment: Acute ischemic stroke left frontal lobe Right-sided weakness Accelerated hypertension H/o cigarette smoking H/o alcohol use disorder Leg swelling Plan: Admitted to [facility] telemetry for right-sided weakness, now confirmed to be due to acute stroke Neurology following MRI of the brain done-confirms acute stroke Echocardiogram MRA of the head and neck Physical therapy/occupational therapy to evaluate and treat Consulted case management for DC planning Lipid panel/hemoglobin A1c in AM Continue statin, aspirin, beta angel Keep SBP >150 For Doppler US legs Plan discussed with patient and girlfriend in room History Interval history: Right sided weakness Patient complained of leg swelling Hospitalist Physical - Physical exam Narrative exam: Gen: Not in acute distress, lying in bed, HEENT: Normocephalic, atraumatic Neck: supple, no JVD Heart: S1 and S2 reg, no murmurs, rubs or gallop Lungs: Clear, no crackles, no wheeze Abd: soft, non tender, non distended, normal BS Ext: Right leg swelling, no clubbing, no cyanosis, Neuro: Awake,alert, oriented x 3, right sided weakness leg>arm Psych:Normal mood - Constitutional Vitals: Temp Pulse Resp BP Pulse Ox 98.6 F 62 20 147/96 90 03/24/19 08:58 03/24/19 10:00 03/24/19 10:00 03/24/19 09:30 03/24/19 08:58 General appearance: Present: no acute distress Results - Labs CBC & Chem 7: 03/20/19 22:37 03/20/19 22:37 Labs: Laboratory Last Values WBC 5.8 K/mm3 (4.5-11.0) 03/20/19 22:37 RBC 5.40 M/mm3 (3.65-5.03) H 03/20/19 22:37 Hgb 15.3 gm/dl (11.8-15.2) H 03/20/19 22:37 Hct 46.0 % (35.5-45.6) H 03/20/19 22:37 MCV 85 fl (84-94) 03/20/19 22:37 MCH 28 pg (28-32) 03/20/19 22:37 MCHC 33 % (32-34) 03/20/19 22:37 RDW 15.6 % (13.2-15.2) H 03/20/19 22:37 Plt Count 264 K/mm3 (140-440) 03/20/19 22:37 Lymph % (Auto) 32.0 % (13.4-35.0) 03/20/19 22:37 [place] % (Auto) 7.5 % (0.0-7.3) H 03/20/19 22:37 Eos % (Auto) 4.1 % (0.0-4.3) 03/20/19 22:37 Baso % (Auto) 0.9 % (0.0-1.8) 03/20/19 22:37 Lymph # 1.9 K/mm3 (1.2-5.4) 03/20/19 22:37 [place] # 0.4 K/mm3 (0.0-0.8) 03/20/19 22:37 Eos # 0.2 K/mm3 (0.0-0.4) 03/20/19 22:37 Baso # 0.1 K/mm3 (0.0-0.1) 03/20/19 22:37 Seg Neutrophils % 55.5 % (40.0-70.0) 03/20/19 22:37 Seg Neutrophils # 3.2 K/mm3 (1.8-7.7) 03/20/19 22:37 Sodium 140 mmol/L (137-145) 03/20/19 22:37 Potassium 4.0 mmol/L (3.6-5.0) 03/20/19 22:37 Chloride 108.4 mmol/L (98-107) H 03/20/19 22:37 Carbon Dioxide 21 mmol/L (22-30) L 03/20/19 22:37 15 mmol/L 03/20/19 22:37 BUN 11 mg/dL (9-20) 03/20/19 22:37 0.6 mg/dL (0.8-1.5) L 03/20/19 22:37 Estimated GFR > 60 ml/min 03/20/19 22:37 18 % 03/20/19 22:37 Glucose 90 mg/dL (75-100) 03/20/19 22:37 5.0 % (4-6) 03/22/19 05:36 Calcium 8.6 mg/dL (8.4-10.2) 03/20/19 22:37 Magnesium 2.20 mg/dL (1.7-2.3) 03/20/19 22:37 Triglycerides 89 mg/dL (2-149) 03/22/19 05:36 Cholesterol 167 mg/dL (50-199) 03/22/19 05:36 119 mg/dL (50-130) 03/22/19 05:36 39 mg/dL (40-59) L 03/22/19 05:36 4.28 % 03/22/19 05:36 Active Medications - Current Medications Current Medications: Generic Name Dose Route Start Last Admin Trade Name Freq PRN Reason Stop Dose Admin Acetaminophen 650 mg 03/21/19 04:14 Tylenol PO Q4H PRN Pain, Mild (1-3) Amlodipine Besylate 5 mg 03/21/19 10:00 03/24/19 09:21 Norvasc PO 5 mg DAILY MARILIN Administration Aspirin 325 mg 03/21/19 10:00 03/24/19 09:21 Aspirin PO 325 mg QDAY MARILIN Administration Atorvastatin Calcium 40 mg 03/21/19 22:00 03/23/19 21:22 Lipitor PO 40 mg QHS MARILIN Administration Bisacodyl 10 mg 03/21/19 04:14 Dulcolax AK QDAY PRN Constipation Enoxaparin Sodium 40 mg 03/21/19 10:00 03/24/19 09:23 Lovenox SUB-Q 40 mg QDAY MARILIN Administration Famotidine 20 mg 03/22/19 22:00 03/24/19 09:21 Pepcid PO 20 mg BID MARILIN Administration Sodium Chloride 1,000 mls @ 100 mls/hr 03/21/19 04:00 03/22/19 03:48 Nacl 0.9% 1000 Ml IV 100 mls/hr DIRECT MARILIN Administration Magnesium Hydroxide 30 ml 03/21/19 04:14 Milk Of Magnesia PO Q4H PRN Constipation Metoclopramide HCl 10 mg 03/21/19 04:14 Reglan PO Q6H PRN Nausea And Vomiting Metoprolol Tartrate 25 mg 03/21/19 10:00 03/24/19 09:30 Lopressor PO 25 mg BID MARILIN Administration Ondansetron HCl 4 mg 03/21/19 03:24 Zofran IV Q8H PRN Nausea And Vomiting Promethazine HCl 25 mg 03/21/19 04:14 Phenergan AK Q6H PRN Nausea And Vomiting Sodium Chloride 10 ml 03/21/19 10:00 03/24/19 09:32 Sodium Chloride Flush Syringe 10 Ml IV 10 ml BID MARILIN Administration Sodium Chloride 10 ml 03/21/19 03:24 Sodium Chloride Flush Syringe 10 Ml IV PRN PRN LINE FLUSH Nutrition/Malnutrition Assess - Dietary Evaluation Nutrition/Malnutrition Findings: Nutrition Notes Start: 03/21/19 12:12 Freq: Status: Active Protocol: Document 03/21/19 12:12 LP (Rec: 03/21/19 12:21 LP [email or web address]) Nutrition Notes Need for Assessment generated from: MD Order,Education Initial or Follow up Brief Note Current Diagnosis Hypertension Subjective/Other Information Consult for diet education. Pt states being diagnosed with HTN 4 weeks ago but just got medication a few days ago. Pt states changing diet to chicken and vegetales. Admits diet was pizza, beer and cigarettes. Pt states no longer doing any of these anymore. #1 Nutrition Diagnosis Food and nutrition-related knowledge deficit Etiology Low Na diet As Evidenced by Signs and Symptoms Pt wanted diet education on low Na diet Nutrition Intervention Teaching Recipient Patient Learning Readiness Good Teaching Methods Discussion Response to Teaching Verbalize understanding Education Handouts Provided HTN diet Barriers to Learning No Barriers RD phone number provided Yes Patient aware of follow up options Yes Revisit per MD consult or patient Sign Off request:
[2019-03-24 13:01] LABS: Protein S, Free 92 % normal (57-171); Protein S, Total 97 % normal (70-140)
--- NOTE | 2019-03-24 13:27 | Vascular Lab Report ---
PROCEDURE: VL VENOUS DUPLEX LE BILAT TECHNIQUE: Duplex Doppler ultrasound examination of the venous system of the right leg and left leg HISTORY: swelling of legs COMPARISONS: None FINDINGS: RIGHT LEG: Normal compressibility, vascular patency, and augmentation are present diffusely throughout the visua lized portion of the deep veins. No abnormal intraluminal echoes are visualized to suggest deep vein thrombus. IMPRESSION: No ultrasound evidence of DVT in the right leg LEFT LEG: Normal compressibility, vascular patency, and augmentation are present diffusely throughout the visua lized portion of the deep veins. No abnormal intraluminal echoes are visualized to suggest deep vein thrombus. IMPRESSION: No ultrasound evidence of DVT in the left leg This document is electronically signed by Paulino Nieto MD., March 24 2019 01:24:50 PM ET
[2019-03-24 14:03] VITALS: BP 141/88
[2019-03-28 20:52] LABS: ANA Screen, IFA Negative (Negative)
== END 2019-03-24 16:15 | disposition home or self-care (01) | DRG 92 ==
LOC: ED 18:45 → 4A 03-21 03:24
PROVIDERS: ADMIT Internal Medicine; ATTEND Internal Medicine
DX: R20.2 Paresthesia of skin (principal); D68.59 Other primary thrombophilia; I10 Essential (primary) hypertension; R29.2 Abnormal reflex; F12.90 Cannabis use, unspecified, uncomplicated; Z87.891 Personal history of nicotine dependence; Z72.89 Other problems related to lifestyle
CPT/HCPCS: 36415; 70450; 70544; 70551; 70552; 72125; 72128; 72131; 72156; 80048; 80061; 83036; 83735; 85025; 85240; 85301; 85305; 85613; 86038; 86225; 93306; 93880; 93970; G0378; A9270-GY; A9577; J1650; J7030